=== PATIENT | female | born 2005 | race Two or more races ===

== ENCOUNTER 2024-12-30 18:21 | Emergency (ER) | payer MEDICAID, OTHER ==
[~2024-12-30] VITALS: Ht 165.1 cm; Wt 77.7 kg
--- NOTE | 2024-12-30 19:19 | ED.PDOC ---
GI ASSESSMENT HPI Comments 19 year old female came to ER due to nausea and vomiting. Since 11 am patient has been having epigastric abdominal pain associated with bouts of nausea, vomiting and loose, non bloody diarrhea. Denies any possibility of Chief Complaint: Nausea/Vomiting Time Seen by MD: 19:18 Reviewed Notes: Nurses Notes Allergies: Coded Allergies: Penicillins (Verified Allergy, Unknown, 12/30/24) Information Source: Patient Mode of Arrival: Ambulatory Timing: Hours Duration: Since onset Prehospital treatment: None Quality: Aching, Sharp Vomitus: Watery Stool: Loose, Watery Severity: Moderate Recent: None Recent Hx of: None Pain Location: Epigastric Modifying Factors: Nothing Associated sign and symptoms: Nausea, Vomiting, Diarrhea, Abdominal Pain Past Medical History PAST MEDICAL HISTORY: Denies Surgical History: Denies all surgeries [employer] History: Denies all [employer] Hx Family History Family History: Reviewed,noncontributory to illness Social History Smoker: Non-Smoker Alcohol: Denies ETOH Use Drugs: Denies Drug Use Lives In: Home Constitutional: denies: chills, diaphoresis, fatigue, fever, malaise, sweats, weakness, others EENTM: denies: blurred vision, double vision, ear bleeding, ear discharge, ear drainage, ear pain, ear ringing, eye pain, eye redness, hearing loss, mouth pain, mouth swelling, nasal discharge, nose bleeding, nose congestion, nose pain, photophobia, tearing, throat pain, throat swelling, voice changes, others Respiratory: denies: cough, hemoptysis, orthopnea, SOB at rest, shortness of breath, SOB with excertion, stridor, wheezing, others Cardiovascular: denies: chest pain, dizzy spells, diaphoresis, Dyspnea on exertion, edema, irregular heart beat, left arm pain, lightheadedness, palpitations, PND, syncope, others Gastrointestinal: reports: abdominal pain, diarrhea, nausea, vomiting; denies: abdomen distended, blood streaked bowels, constipated, dysphagia, difficulty swallowing, hematemesis, melena, poor appetite, poor fluid intake, rectal bleeding, rectal pain, others Genitourinary: denies: abnormal vagina bleeding, burning, dyspareunia, dysuria, flank pain, frequency, hematuria, incontinence, pain, , vagina discharge, urgency, others Neurological: denies: dizziness, fainting, headache, left sided numbness, left sided weakness, numbness, paresthesia, pre-existing deficit, right sided numbness, right sided weakness, seizure, speech problems, tingling, tremors, weakness, others Musculoskeletal: denies: back pain, gout, joint pain, joint swelling, muscle pain, muscle stiffness, neck pain, others Integumetry: denies: bruises, change in color, change in hair/nails, dryness, laceration, lesions, lumps, rash, wounds, others Allergic/Immunocompromised: denies: Difficulty Healing, Frequent Infections, Hives, Itching, others Hematologic/Lymphatic: denies: anemia, blood clots, easy bleeding, easy bruis ing, swollen glands, others Endocrine: denies: excessive hunger, excessive sweating, excessive thirst, exc essive urination, flushing, intolerance to cold, intolerance to heat, unexplained weight gain, unexplained weight loss, others Psychiatric: denies: anxiety, bipolar disorder, depression, hopeless, panic disorder, schizophrenia, sleepless, suicidal, others Physical Exam General Appearance: No Apparent Distress, Normal HEENT: Normal ENT Inspection, Pharynx Normal, TMs Normal Neck: Full Range of Motion, Non-Tender, Normal, Normal Inspection Respiratory: Chest Non-Tender, Lungs Clear, No Accessory Muscle Use, No Resp iratory Distress, Normal Breath Sounds Cardiovascular: No Edema, No JVD, No Murmur, No Gallop, Normal Peripheral Pulses, Regular Rate/Rhythm Breast Exam: Deferred Gastrointestinal: Epigastric, No Organomegaly, No Pulsatile Mass, Normal Bowel Sounds, Soft, Tenderness Genitalia: Deferred Pelvic: Deferred Rectal: Deferred Extremities: No calf tenderness, Normal capillary refill, Normal inspection, Normal range of motion, Non-tender, No pedal edema Musculoskeletal : Apperance: Normal Neurologic: Alert, installation service representative II-XII nml as Tested, No Motor Deficits, Normal Affect, Normal Mood, No Sensory Deficits Cerebellar Function: Normal Reflexes: Normal Skin: Dry, Normal Color, Warm Lymphatic: No Adenopathy Was a procedure done? Was a procedure done?: No GI differential Dx Differential Diagnosis: Diverticular disease, Gastritis/PUD, Gastroenteritis, Pancreatitis, UTI, Dehydration, Electrolyte Imbalance, Food Poisoning, X-Ray, Labs, Meds, VS Vital Signs Date Time Temp Pulse Resp B/P (MAP) Pulse Ox O2 Delivery O2 Flow Rate FiO2 12/30/24 18:55 99.0 100 18 144/90 (108) 95 99.0 Lab Test 12/30/24 19:15 12/30/24 18:57 Range/Units White Blood Count 11.3 H 4.4-10.8 10^3/uL Red Blood Count 5.97 H 4.0-5.20 10^6/uL Hemoglobin 15.1 12.2-16.2 g/dL Hematocrit 45.6 36.0-46.0 % Mean Corpuscular Volume 76.4 L 80.0-100.0 fL Mean Corpuscular Hemoglobin 25.4 L 28.0-32.0 pg Mean Corpuscular Hemoglobin Concent 33.2 32.0-36.0 g/dL Red Cell Distribution Width 15.4 H 11.8-14.3 % Platelet Count 436 140-450 10^3/uL Mean Platelet Volume 7.9 6.9-10.8 fL Neutrophils (%) (Auto) 92.0 H 37.0-80.0 % Lymphocytes (%) (Auto) 4.2 L 10.0-50.0 % Monocytes (%) (Auto) 3.4 0.0-12.0 % Eosinophils (%) (Auto) 0.1 0.0-7.0 % Basophils (%) (Auto) 0.3 0.0-2.0 % Neutrophils # (Auto) 10.4 H 1.6-8.6 10 ^3/uL Lymphocytes # (Auto) 0.5 0.4-5.4 10 ^3/uL Monocytes # (Auto) 0.4 0-1.3 10 ^3/uL Eosinophils # (Auto) 0 0-0.8 10 ^3/uL Basophils # (Auto) 0 0-0.2 10 ^3/uL Nucleated Red Blood Cells 0.0 % Sodium Level 141 136-145 mmol/L Potassium Level 4.4 3.5-5.1 mmol/L Chloride Level 111 H 98-107 mmol/L Carbon Dioxide Level 20 20-31 mmol/L Anion Gap 10 5-15 Blood Urea Nitrogen 10 9-23 mg/dL Creatinine 1.00 0.550-1.02 mg/dL Glomerular Filtration Rate Calc 83 >90 mL/min BUN/Creatinine Ratio 10.0 10.0-20.0 Serum Glucose 93 74-106 mg/dL Calcium Level 11.0 H 8.7-10.4 mg/dL Urine Color Yellow Yellow Urine Clarity Clear Clear Urine pH 5.5 5.0-9.0 Urine Specific Richey 1.039 H 1.001-1.035 Urine Protein 1+ H Negative Urine Ketones 4+ H Negative Urine Blood 1+ H Negative /uL Urine Nitrite Negative Negative Urine Bilirubin Negative Negative Urine Urobilinogen Normal Negative mg/dL Urine Leukocyte Esterase Negative Negative /uL Urine RBC 2 0 - 4 /hpf Urine Microscopic WBC 2 0-5 /HPF Urine Squamous Epithelial Cells Few <5 /hpf Urine Bacteria None seen None Seen /hpf Urine Mucus Few None Seen Urine Glucose Normal Normal mg/dL Time of 1ST Reevaluation: 19:16 Reevaluation 1ST: Unchanged Patient Education/Counseling: Diagnosis, Treatment Family Education/Counseling: No Family Present Departure 1 Departure Time of Disposition: 20:47 (In my judgment patient has gastroenteritis. Patient's labs are benign. Patient is feeling better and tolerating p.o. now. We will discharge patient home with outpatient follow up) Impression: Primary Impression: Acute gastroenteritis Disposition: 01 HOME / SELF CARE / HOMELESS Condition: Stable Additional Instructions: You likely have gastroenteritis. It is important to stay well hydrated and well rested. This usually resolves within 1 week. If your symptoms worsen or you have any other concerns please return to the ER. Discharged With: Self Critical Care Note Critical Care Time?: No Stability Stability form required: No Heart Score Heart Score: Heart Score Response (Comments) Value History N/A 0 EKG N/A 0 Age N/A 0 Risk Factors N/A 0 Troponin N/A 0 Total 0 I personally scribed for GUALBERTO MCCARTHY MD ([email or web address]) on 12/30/24 at 19:19. Electronically submitted by Jaden Salcido ([email or web address]). GUALBERTO MCCARTHY MD December 30, 2024 19:19
[2024-12-30 19:29] LABS: Urine Bacteria None Seen /hpf (None Seen)
[2024-12-30 19:29] LABS: Basophils # (auto) 0 10 ^3/uL (0-0.2); Eosinophils # (auto) 0 10 ^3/uL (0-0.8); Eosinophils % (auto) 0.1 % (0.0-7.0); Hematocrit 45.6 % (36.0-46.0); Hemoglobin 15.1 g/dL (12.2-16.2); Lymphocytes # (auto) 0.5 10 ^3/uL (0.4-5.4); Monocytes # (auto) 0.4 10 ^3/uL (0-1.3); Red Cell Distribution Width 15.4 % (11.8-14.3)
[2024-12-30 19:30] LABS: Basophils % (auto) 0.3 % (0.0-2.0); Lymphocytes % (auto) 4.2 % (10.0-50.0); Mean Corpuscular Hemoglobin 25.4 pg (28.0-32.0); Mean Corpuscular Hgb Conc. 33.2 g/dL (32.0-36.0); Mean Corpuscular Volume 76.4 fL (80.0-100.0); Monocytes % (auto) 3.4 % (0.0-12.0); Neutrophils # (auto) 10.4 10 ^3/uL (1.6-8.6); Platelet Count (auto) 436 10^3/uL (140-450); Red Blood Cells 5.97 10^6/uL (4.0-5.20); White Blood Cell 11.3 10^3/uL (4.4-10.8)
[2024-12-30 19:37] LABS: Urine Blood 1+ /uL (Negative); Urine Clarity Clear (Clear); Urine Color Yellow (Yellow); Urine Mucus FEW (None Seen); Urine Protein, UAD 1+ (Negative); Urine Specific Gravity 1.039 (1.001-1.035); Urine Squamous Epithelial Cell FEW /hpf (<5); Urine Urobilinogen Normal (Negative); Urine WBC 2 /HPF (0-5); Urine pH 5.5 (5.0-9.0)
[2024-12-30 19:37] LABS: Potassium 4.4 mmol/L (3.5-5.1); Sodium 141 mmol/L (136-145)
[2024-12-30 19:38] LABS: Anion Gap 10 (5-15)
[2024-12-30 19:39] LABS: Carbon Dioxide 20 mmol/L (20-31); Chloride 111 mmol/L (98-107)
[2024-12-30 19:43] LABS: Blood Urea Nitrogen 10 mg/dL (9-23); Glucose 93 mg/dL (74-106)
[2024-12-30 21:01] VITALS: BP 141/86; TEMP 99.2
[2024-12-30 21:03] VITALS: PULSE 65; RESP 19; O2SAT 96
[2024-12-30] MEDS: SODIUM CHLORIDE 0.9% 1,000 ML IV ONE (21:13)
[2024-12-30] MEDS: FAMOTIDINE (10MG/ML) 2ML VL IV ONE (21:13)
[2024-12-30] MEDS: KETOROLAC TROMETH 30 MG/ML 1ML VIAL IV ONE (21:13)
[2024-12-30] MEDS: ONDANSETRON HCL 4 MG/2 ML VIAL IV ONE (21:13)
== END 2024-12-30 22:01 | disposition home or self-care (01) ==
LOC: ER 18:25
DX: K52.9 Noninfective gastroenteritis and colitis, unspecified (principal); Z88.0 Allergy status to penicillin
CPT/HCPCS: 36415; 80048; 81001; 85025; 96361; 96374; 96375; 99284; J1885; J2405; J3490; J7030